=== PATIENT | male | born 1980 | race Caucasian/White ===

== ENCOUNTER 2016-11-13 00:55 | Emergency (ER) | payer BC, OTHER ==
[~2016-11-13] VITALS: Ht 180.3 cm; Wt 104.0 kg
[2016-11-13] MEDS ORDERED: MAALOX/HYOSCYAMINE/LIDOCAINE 45 ML BOTTLE PO ONE (01:30)
[2016-11-13] MEDS ORDERED: ONDANSETRON ODT 4 MG PO ONE (01:30)
[2016-11-13] MEDS ORDERED: FAMOTIDINE 20 MG TABLET PO ONE (01:30)
[2016-11-13] MEDS ORDERED: ONDANSETRON ODT 4 MG ONE (01:39)
[2016-11-13] MEDS ORDERED: FAMOTIDINE 20 MG TABLET ONE ×2 (01:39→01:46)
[2016-11-13] MEDS ORDERED: MAALOX/HYOSCYAMINE/LIDOCAINE 45 ML BOTTLE ONE (01:39)
[2016-11-13 02:02] LABS: BLOOD UREA NITROGEN 28 mg/dL (7-18)
[2016-11-13 02:06] LABS: ASPARTATE AMINO TRANSFERASE 18 U/L (15-37)
[2016-11-13 03:11] VITALS: BP 121/79
== END 2016-11-13 03:13 | disposition home or self-care (01) ==
LOC: ED 02:56
DX: K29.00 Acute gastritis without bleeding (principal); S39.012A Strain of muscle, fascia and tendon of lower back, initial encounter; R11.2 Nausea with vomiting, unspecified; M47.896 Other spondylosis, lumbar region; Z90.49 Acquired absence of other specified parts of digestive tract; X58.XXXA Exposure to other specified factors, initial encounter; Y93.89 Activity, other specified; Y99.8 Other external cause status; Y92.89 Other specified places as the place of occurrence of the external cause
CPT/HCPCS: 36415; 80053; 83690; 85025; 93005; 99285; Q0162

== ENCOUNTER 2016-11-17 02:06 | Emergency (ER) | payer OTHER ==
[~2016-11-17] VITALS: Ht 180.3 cm; Wt 102.9 kg
[2016-11-17] MEDS ORDERED: SODIUM CHLORIDE 0.9% 1,000ML IV ONE (03:00)
[2016-11-17] MEDS ORDERED: KETOROLAC 30 MG/1 ML IVPush ONE (03:00)
[2016-11-17] MEDS ORDERED: MORPHINE SULFATE 4 MG/ML, 1ML ONE ×2 (03:00→03:39)
[2016-11-17] MEDS ORDERED: KETOROLAC 30 MG/1 ML ONE (03:00)
[2016-11-17] MEDS: MORPHINE SULFATE 4 MG/ML, 1ML IVPush PRN ×2 (03:21→03:41)
[2016-11-17 03:23] LABS: ASPARTATE AMINO TRANSFERASE 19 U/L (15-37); BLOOD UREA NITROGEN 18 mg/dL (7-18)
[2016-11-17] MEDS ORDERED: LOSA100T6 PO (03:27)
[2016-11-17] MEDS ORDERED: HYDR-3240 PO (03:27)
[2016-11-17 05:40] VITALS: BP 113/48
== END 2016-11-17 05:43 | disposition home or self-care (01) ==
LOC: ED 04:51
DX: S39.012A Strain of muscle, fascia and tendon of lower back, initial encounter (principal); X58.XXXA Exposure to other specified factors, initial encounter; Y93.89 Activity, other specified; Y99.8 Other external cause status; Y92.89 Other specified places as the place of occurrence of the external cause
CPT/HCPCS: 36415; 76770; 80053; 81003; 85025; 96361; 96374; 96375; 99285; J1885; J7030

== ENCOUNTER 2016-12-16 21:18 | Emergency (ER) | payer OTHER ==
[~2016-12-16] VITALS: Ht 180.3 cm; Wt 100.0 kg
[~2016-12-16 21:18] MED LIST: HYDR-3240 PO; LOSA100T6 PO
[2016-12-16] MEDS ORDERED: ONDANSETRON ODT 4 MG ONE (21:56)
[2016-12-16] MEDS ORDERED: OXYcodone/APAP 10/325MG TABLET ONE (21:56)
[2016-12-16] MEDS ORDERED: ONDANSETRON ODT 4 MG PO ONE (22:00)
[2016-12-16] MEDS ORDERED: OXYcodone/APAP 10/325MG TABLET PO ONE (22:00)
[2016-12-16] MEDS ORDERED: HYDROmorphone 1 MG/ML, 1ML ONE (22:29)
[2016-12-16] MEDS ORDERED: HYDROmorphone 1 MG/ML, 1ML IM ONE (22:30)
[2016-12-16 23:05] VITALS: BP 137/86
== END 2016-12-16 23:15 | disposition home or self-care (01) ==
LOC: ED 21:59
DX: M54.16 Radiculopathy, lumbar region (principal); G89.29 Other chronic pain; M54.5 Low back pain; Z90.49 Acquired absence of other specified parts of digestive tract
CPT/HCPCS: 96372; 99283; J1170; Q0162

== ENCOUNTER 2017-07-18 18:54 | Emergency (ER) | payer OTHER, MEDICAID ==
[~2017-07-18] VITALS: Ht 182.9 cm; Wt 105.0 kg
[2017-07-18 19:01] VITALS: BP 126/82
[2017-07-18] MEDS ORDERED: KETOROLAC 30 MG/1 ML ONE (19:58)
[2017-07-18] MEDS ORDERED: HYDROmorphone 2 MG/ML, 1ML ONE (19:58)
[2017-07-18] MEDS ORDERED: HYDROmorphone 1 MG/ML, 1ML IM ONE (20:00)
[2017-07-18] MEDS ORDERED: KETOROLAC 30 MG/1 ML IM ONE (20:00)
== END 2017-07-18 20:47 | disposition home or self-care (01) ==
LOC: ED 19:21
DX: G89.29 Other chronic pain (principal); M54.5 Low back pain; I10 Essential (primary) hypertension
CPT/HCPCS: 96372; 99284; J1170; J1885